=== PATIENT | male | born 2000 | race American Indian/Alaskan Native ===

== ENCOUNTER 2018-05-28 13:56 | Emergency (ER) | payer SELFPAY ==
--- NOTE | 2018-05-28 14:16 | ED PDOC ---
Arrival/HPI - General Historian: Patient - History of Present Illness Narrative History of Present Illness (Text): 05/28/18 14:11 17 y/o male, no significant pmh, nkda, c/o runny nose/cough/fever/fatigue with bodyache x 2 days with no recent traveling. Pt. has no objective temperature, feeling fatigue, no hemopytsis or night sweat, no chest pain or shortness of breath, no rash, no dizziness, no change in vision, no abdominal or pelvic pain, no other medical or psychological complaints. <Grayson Hollins - Last Filed: 05/28/18 15:35> <Chavez Zimmer - Last Filed: 05/28/18 16:02> - General Chief Complaint: Flu-like Symptoms Past Medical History - Provider Review Nursing Documentation Reviewed: Yes - Infectious Disease Hx of Infectious Diseases: None - Psychiatric Hx Substance Use: No - Anesthesia Hx Anesthesia: No Hx Anesthesia Reactions: No Hx Malignant Hyperthermia: No <Grayson Hollins - Last Filed: 05/28/18 15:35> Family/Social History - Physician Review Nursing Documentation Reviewed: Yes Family/Social History: Unknown Family HX Smoking Status: Current Some Days Smoker Hx Alcohol Use: No Hx Substance Use: No <Grayson Hollins - Last Filed: 05/28/18 15:35> Allergies/Home Meds <Grayson Hollins - Last Filed: 05/28/18 15:35> <Chavez Zimmer - Last Filed: 05/28/18 16:02> Allergies/Adverse Reactions: Allergies No Known Allergies Allergy (Verified 05/28/18 14:10) Review of Systems - Review of Systems Constitutional: Fatigue, Fevers Eyes: absent: Vision Changes ENT: Rhinorrhea. absent: Hearing Changes Respiratory: Cough. absent: SOB, Sputum, Wheezing Cardiovascular: absent: Chest Pain Gastrointestinal: absent: Abdominal Pain, Diarrhea, Nausea, Vomiting Musculoskeletal: Myalgias. absent: Arthralgias, Back Pain, Neck Pain, Joint Swelling Skin: absent: Rash, Pruritis Neurological: absent: Headache, Dizziness Psychiatric: absent: Anxiety, Depression, Suicidal Ideation <Grayson Hollins - Last Filed: 05/28/18 15:35> Physical Exam Vital Signs Reviewed: Yes Vital Signs Temp Pulse Resp BP Pulse Ox 05/28/18 14:04 97.5 F L 68 18 156/95 H 100 Temperature: Afebrile Blood Pressure: Hypertensive Pulse: Regular Respiratory Rate: Normal Appearance: Positive for: Well-Appearing, Non-Toxic, Comfortable Pain Distress: Mild Mental Status: Positive for: Alert and Oriented X 3 - Systems Exam Head: Present: Atraumatic, Normocephalic Pupils: Present: PERRL Extroacular Muscles: Present: EOMI Conjunctiva: Present: Normal Mouth: Present: Moist Mucous Membranes Nose (External): Present: Atraumatic. No: Abrasion, Contusion, Laceration Nose (Internal): Present: Normal Inspection, No Active Bleeding, Rhinorrhea. No: Septal Hematoma, Epistaxis Neck: Present: Normal Range of Motion, Trachea Midline. No: Meningeal Signs, MIDLINE TENDERNESS, Paraspinal Tenderness, Lymphadenopathy Respiratory/Chest: Present: Clear to Auscultation, Good Air Exchange. No: Respiratory Distress, Accessory Muscle Use, Wheezes, Decreased Breath Sounds, Rales, Retracting, Rhonchi, Tachypneic, Tender to Palpation Cardiovascular: Present: Regular Rate and Rhythm, Normal S1, S2. No: Murmurs Abdomen: No: Tenderness, Distention, Peritoneal Signs, Rebound, Guarding Back: Present: Normal Inspection Upper Extremity: Present: Normal Inspection, Normal ROM, NORMAL PULSES, Neurovascularly Intact. No: Cyanosis, Edema Lower Extremity: Present: Normal Inspection, NORMAL PULSES, Normal ROM, Neurovascularly Intact, Capillary Refill < 2 s. No: Edema, Deformity Neurological: Present: GCS=15, CN II-XII Intact, Speech Normal, Motor Func Grossly Intact, Normal Cerebellar Funct, Gait Normal, Memory Normal Skin: Present: Warm, Dry, Normal Color. No: Rashes Psychiatric: Present: Alert, Oriented x 3, Normal Insight, Normal Concentration <Grayson Hollins - Last Filed: 05/28/18 15:35> Vital Signs Temp Pulse Resp BP Pulse Ox 05/28/18 15:57 98 F 85 19 119/71 99 05/28/18 15:55 97.2 F L 80 18 150/90 99 05/28/18 14:04 97.5 F L 68 18 156/95 H 100 <Chavez Zimmer - Last Filed: 05/28/18 16:02> Medical Decision Making ED Course and Treatment: 05/28/18 14:17 -rapid flu -tylenol and toradol IM -OBserve and reassess 05/28/18 15:04 -Rapid flu is negative, moderate to high suspicious, will treat. -He has single episode of elevated BP, no cardiopulmonary or neurological complaints, advised he should see his own pmd in 2 days for repeat BP and treatment for elevated BP. -Discharge home with tamiflu, zithromax, bromfed dm, tylenol, bed rest, follow up with your own pmd within 2 days, return to the ER for any new or worsening signs or symptoms. <Grayson Hollins - Last Filed: 05/28/18 15:35> - Medication Orders Current Medication Orders: Discontinued Medications Acetaminophen (Tylenol 325mg Tab) 650 mg PO STAT STA Stop: 05/28/18 14:12 Last Admin: 05/28/18 14:27 Dose: 650 mg MAR Pain/Vitals Document 05/28/18 14:27 GMI (Rec: 05/28/18 14:28 GMI [place] [id number]-) Pain Reassessment Is This A Pain ReAssessment? Yes Sleep Is patient sleeping during reassessment? No Presence of Pain Presence of Pain Yes Pain Scale Used Protocol: PSCALES Pain Scale Used Numeric Ketorolac Tromethamine (Toradol) 60 mg IM STAT STA Stop: 05/28/18 14:12 Last Admin: 05/28/18 14:28 Dose: 60 mg MAR Pain Assessment Document 05/28/18 14:28 GMI (Rec: 05/28/18 14:31 GMI [facility]16-) Pain Reassessment Is this a pain reassessment? Yes Sleep Is patient sleeping during reassessment? No Presence of Pain Presence of Pain Yes IM Administration Charges Document 05/28/18 14:28 GMI (Rec: 05/28/18 14:31 GMI [facility]16-) Injection Site MAR Injection Site Right Deltoid Charges for Administration # of IM Administrations 1 <Chavez Zimmer - Last Filed: 05/28/18 16:02> - PA / [employer] / Resident Statement MYLENE has reviewed & agrees with the documentation as recorded. <Grayson Hollins - Last Filed: 05/28/18 15:35> - PA / [employer] / Resident Statement MYLENE has reviewed & agrees with the documentation as recorded. <Chavez Zimmer - Last Filed: 05/28/18 16:02> Disposition/Present on Arrival - Present on Arrival Any Indicators Present on Arrival: No History of DVT/PE: No History of Uncontrolled Diabetes: No Urinary Catheter: No History of Decub. Ulcer: No History Surgical Site Infection Following: None - Disposition Have Diagnosis and Disposition been Completed?: Yes Disposition Time: 15:15 Patient Plan: Discharge <Grayson Hollins - Last Filed: 05/28/18 15:35> <Chavez Zimmer - Last Filed: 05/28/18 16:02> - Disposition Diagnosis: Flu-like symptoms, URI (upper respiratory infection) Disposition: HOME/ ROUTINE Condition: IMPROVED Additional Instructions: -Discharge home with tamiflu, zithromax, bromfed dm, tylenol, bed rest, follow up with your own pmd within 2 days, return to the ER for any new or worsening signs or symptoms. Prescriptions: Acetaminophen [Tylenol 325mg tab] 2 tab PO QID PRN #30 tab PRN Reason: Other Azithromycin [Z-Lei] 250 mg PO DAILY #6 tab Brompheniramine/Pseudoephed/Dm [Bromfed Dm Cough 118 ml] 10 ml PO QID PRN #250 ml PRN Reason: Other Oseltamivir Cap [Tamiflu] 75 mg PO BID #10 cap Referrals: PCP,NO [Primary Care Provider] - [place] up with [place] [facility] [place] [facility] [place] - Follow up with primary Forms: [email or web address] (American), WORK NOTE
[2018-05-28 15:56] VITALS: O2SAT 99
[2018-05-28 16:00] VITALS: BP 119/71; PULSE 85; RESP 19; TEMP 98
== END 2018-05-28 15:57 | disposition home or self-care (01) ==
LOC: MERGE 13:56 → ED 13:56
DX: J11.1 Influenza due to unidentified influenza virus with other respiratory manifestations (principal); F17.210 Nicotine dependence, cigarettes, uncomplicated
CPT/HCPCS: 87804; 96372; 99283; J1885